=== PATIENT | male | born 1975 | race Caucasian/White ===

== ENCOUNTER 2016-12-09 08:56 | Emergency (ER) | payer OTHER ==
[~2016-12-09] VITALS: Wt 75.0 kg
[2016-12-09] MEDS ORDERED: IBUP-1542 PO (09:06)
--- NOTE | 2016-12-09 09:07 | ERD ---
ER Documentation Chief Complaint Date/Time DATE: 12/09/16 TIME: 09:06 Chief Complaint NECK PAIN FROM A FALL ABRASION ON FOREHEAD. NO LOC. NO NEURO DEFICIT HPI 40-year-old man brought in by [employer] for medical clearance after injuring his forehead from a fall while jumping over a wall. The episode was witnessed he had no loss of consciousness although sustained an abrasion to the anterior right lower leg. He was able to ambulate after the injury and denies ankle pain , no chest pain or shortness of breath, no headache or blurry vision, no vomiting. Patient does not recall his last tetanus dose. ROS All systems reviewed and are negative except as per history of present illness. Medications Home Meds Active Scripts Ibuprofen* (Ibuprofen*) 600 Mg Tablet, 600 MG PO Q8 for PAIN AND/OR INFLAMMATION , #30 TAB Prov:SONYA PAYNE MD 12/09/16 PMhx/Soc None Smoking Status: Former smoker FmHx Family History: No diabetes Physical Exam Vitals Vital Signs Date Time Temp Pulse Resp B/P Pulse Ox O2 Delivery O2 Flow Rate FiO2 12/09/16 09:00 98.2 90 18 160/80 98 Physical Exam GENERAL: Well-developed, well-nourished, well-hydrated, in no apparent distress , looks nontoxic in appearance HEENT: Moist mucous membranes, superficial abrasion to the left upper forehead at the hairline measuring about 2 cm, pink conjunctiva, no cervical spine tenderness or step-off deformities, no goiter, no jaundice or icterus, extraocular movements intact without pain. No submandibular induration, and no pharyngeal erythema, no carotid bruits auscultated or thrills palpated. NEURO: Alert and oriented 3, cranial nerves II through XII intact bilaterally, pupils equal round reactive to light, no focal deficits or facial asymmetry, sensation intact distally Strength 5/5 in upper and lower extremities bilaterally CARDIAC: Regular rate and rhythm, no murmurs rubs or gallops LUNGS: Clear bilaterally no wheezing crackles or stridor ABDOMEN: Soft nontender, no guarding, no rigidity, no rebound, no psoas sign no obturator sign. Normoactive bowel sounds SKIN: Warm and dry to touch, positive superficial abrasion to the right anterior moore, no target lesions, and without ulcers EXTREMITIES: No clubbing cyanosis or edema, calves are bilaterally symmetrical, no Homans sign, no popliteal cord sign. Distal pulses equal and bilateral PSYCH: Normal affect without agitation or irritability Results 24 hrs Current Medications Medications (Trade) Dose Ordered Sig/[place] Route PRN Reason Start Time Stop Time Status Last Admin Dose Admin Diphtheria/ Tetanus/Acell Pertussis (Adacel) 0.5 ml ONCE ONCE IM* 12/09/16 09:30 12/09/16 09:30 DC 12/09/16 09:13 Ibuprofen (Motrin) 600 mg ONCE ONCE PO 12/09/16 09:30 12/09/16 09:30 DC 12/09/16 09:12 Procedures/MDM Abrasions were irrigated and dried, triple antibiotic ointment was applied and gauze dressing was then applied after antibiotic ointment. Tetanus toxoid 0.5 mL intramuscular injection was administered as well as ibuprofen 600 mg p.o. Patient is okay to book. Differential diagnoses considered, included but not limited to acute coronary syndrome, pulmonary embolism, aortic dissection, abdominal aortic aneurysm, sepsis, stroke, meningitis, encephalitis, pneumonia, appendicitis, cholecystitis , bowel obstruction, pyelonephritis, nephrolithiasis, cystitis, as well as metabolic, hematologic, and electrolyte abnormalities. As well as abscess, cellulitis, fractures, and dislocations. Patient feels much better at this time, and vital signs are normal, symptoms have improved. I did give strict instructions to return to the ED if symptoms continue or worsen, patient will otherwise follow-up with primary care physician. Patient understood instructions and agreed to plan. Departure Diagnosis: Primary Impression: Abrasion Additional Impression: Neck sprain Encounter type: initial encounter Qualified Code: S13.9XXA - Neck sprain, initial encounter Condition: Good Patient Instructions: Abrlesli, [facility] Clearance, Neck Sprain/Strain SONYA PAYNE MD Dec 09, 2016 09:07
[2016-12-09] MEDS ORDERED: IBUPROFEN 600 MG TAB PO ONE (09:30)
[2016-12-09] MEDS ORDERED: DIPHTH/TET/ACEL PERTUSS (ADULT) 0.5 ML VIAL IM* ONE (09:30)
== END 2016-12-09 09:25 | disposition home or self-care (01) ==
LOC: E/R 08:56
DX: S00.81XA Abrasion of other part of head, initial encounter (principal); S13.9XXA Sprain of joints and ligaments of unspecified parts of neck, initial encounter; F17.210 Nicotine dependence, cigarettes, uncomplicated; W18.39XA Other fall on same level, initial encounter; Y92.9 Unspecified place or not applicable; Z23 Encounter for immunization
CPT/HCPCS: 90471; 90715